=== PATIENT | female | born 2000 | race Caucasian/White ===

== ENCOUNTER → 2021-02-25 09:22 | Outpatient (BNVA) | payer BC, SELFPAY | PROVIDERS: Visit Provider Obstetrics & Gynecology | DX: Z30.9 Encounter for contraceptive management, unspecified (principal) | CPT/HCPCS: 81025 ==

== ENCOUNTER → 2021-08-20 09:08 | Outpatient (BNVA) | payer BC, SELFPAY | PROVIDERS: Visit Provider Family Medicine | DX: Z00.00 Encounter for general adult medical examination without abnormal findings (principal); H60.91 Unspecified otitis externa, right ear | CPT/HCPCS: 80053; 85025 ==